=== PATIENT | male | born 1965 | race Caucasian/White ===

== ENCOUNTER 2021-12-17 23:51 | Emergency (ER) | payer BC, OTHER ==
[2021-12-18] MEDS ORDERED: SODIUM CHLORIDE 0.9% 500 ML INFUS.BAG IV ONE (00:16)
[2021-12-18] MEDS ORDERED: ONDANSETRON 4 MG/2 ML VIAL ONE (00:17)
[2021-12-18] MEDS ORDERED: ONDANSETRON 4 MG/2 ML VIAL IVPB ONE (00:17)
[2021-12-18] MEDS ORDERED: FAMOTIDINE 20 MG/50 ML IVPB 20 MG/50 ML MG IVPB ONE (00:17)
[2021-12-18 00:30] VITALS: BP 144/88; PULSE 62; TEMP 98.8; BMI 26.7
== END 2021-12-18 02:03 | disposition home or self-care (01) ==
LOC: FER 23:51
PROC: 3E033GC Introduction of Other Therapeutic Substance into Peripheral Vein, Percutaneous Approach (ICD-10-PCS; principal; 2021-12-17)
DX: R07.89 Other chest pain (principal)
CPT/HCPCS: 36415; 71046-TC-FY; 84484; 93005; 99285-25